=== PATIENT | male | born 1955 | race Caucasian/White ===

== ENCOUNTER 2019-12-25 16:44 | Emergency (ER) | payer MEDICARE, MEDICAID, SELFPAY ==
[2019-12-25 17:00] VITALS: BP 131/75; PULSE 87; RESP 17; TEMP 37.1; O2SAT 99; BMI 24.5
--- NOTE | 2019-12-25 17:25 | W.ED.SKABFB ---
HPI - Skin/Abscess/Foreign Bdy General: Chief complaint: Skin/Abscess/Foreign Body Stated complaint: abcess on elbow Source: patient Mode of arrival: ambulatory Limitations: no limitations History of Present Illness: HPI narrative: Patient comes in today with complaints of redness and tenderness to the right elbow for one week. Patient has had a history of previous flare in the elbow with incision and drainage. Patient appears well. Patient appears in mild pain. Review of Systems General: Reports: 10 or more systems reviewed and unremarkable except in HPI and below Skin/Breast: Reports: redness and skin tenderness PFSH ED PFSH: Family History (Updated 12/25/19 @ 13:30 by Zahraa Lugo RN) Denies family history of Anesthesia complication Bleeding disorder Social History (Updated 12/25/19 @ 13:30 by Zahraa Lugo RN) Smoking and tobacco status: current every day smoker Second hand smoke exposure: No Alcohol intake: never Adopted: No Caregiver/support person: Yes Lives independently: Yes Household members: none Housing: House Marital status: Single service: No Current occupational status: disabled Current occupational exposures/hazards: No Pets and animals: No History of recent travel: No Sexually active: No Current gender identity: Male Luna/Holiness: [employer] [place] Special luna needs: No Agree to transfusion: No Financial difficulty paying for basics: Decline to Answer Physical Exam Const: COMMON NORMALS: no apparent distress and oriented x3 GENERAL APPEARANCE: cooperative HENMT: COMMON NORMALS: normocephalic, external ears normal, EAC's normal, TM's normal bilaterally and external nose normal HEAD & SCALP: normal to inspection and normocephalic FACE & SINUS: normal facial exam NOSE: external nose normal GENERAL EAR: hearing not grossly impaired EXTERNAL EAR: Yes external ears normal EXTERNAL AUDITORY CANAL: EAC's normal TYMPANIC MEMBRANE: TM's normal bilaterally MOUTH: oral and palatal mucosa normal THROAT: posterior oropharynx normal Eye: COMMON NORMALS: PERRL and EOMs intact bilaterally PUPIL: Yes PERRL Neck/C-Spine: COMMON NORMALS: full ROM and no lymphadenopathy Lymph: LYMPHATIC: no lymphedema noted Chest: COMMONS NORMALS: inspection of chest normal and palpation of chest normal Resp: COMMON NORMALS: normal respiratory effort and clear to auscultation bilaterally AUSCULTATION: clear to auscultation bilaterally Cardio: COMMON NORMALS: regular rate and regular rhythm RATE: regular rate RHYTHM: regular rhythm GI: COMMON NORMALS: normal to inspection, nondistended, normoactive bowel sounds and non-tender : COMMON NORMALS: Yes no CVA tenderness BLADDER/KIDNEY EXAM: Yes no CVA tenderness Back/Pelvis: COMMON NORMALS: no CVA tenderness and thoracic and lumbar spine normal to inspection Extremity: GENERAL: Yes edema RIGHT UPPER EXTREMITY: Yes elbow joint (redness and swelling to right elbow, olecranon swelling) Neuro: COMMON NORMALS: oriented x3, moves all extremities and no focal motor deficits Psych: COMMON NORMALS: mental status grossly normal and cooperative Skin: COMMON NORMALS: no rashes or lesions noted GENERAL SKIN EXAM: no rashes or lesions noted Course Vital Signs: Vital signs: Vital Signs Temperature 98.8 F 12/25/19 17:00 Pulse Rate 87 12/25/19 17:00 Respiratory Rate 17 12/25/19 17:00 Blood Pressure 131/75 12/25/19 17:00 Pulse Oximetry 99 12/25/19 17:00 MDM - Skin/Abscess/Foreign Bdy MDM Narrative: Medical decision making narrative: Patient comes in today with complaints of redness and tenderness to the right elbow. On exam we note swelling of the olecranon bursa with significant redness surrounding it. Pulses are equal distal. Prompt capillary refill is noted distally. Differential diagnosis includes cellulitis, abscess, olecranon bursitis. Reviewed exam with patient with recommendations for treatment for olecranon bursitis. Was able to draw off some turbid fluid from elbow approximately 15 mL's. Patient tolerated well. Patient be started on clindamycin he was given 600 mg IM in the emergency room. Patient be started on p.o. meds 304 times a day for 10 days. Patient was also given some hydrocodone for breakthrough pain. Patient was recommended to return to the ER for high fever or worsening pain and swelling. Patient reports understanding. Patient may need further treatment with IV drugs and admission if continued or worsening symptoms. Discharge Plan Discharge Patient Disposition: Home, Self-Care Clinical Impression: Bursitis Qualifiers: Bursitis location: elbow Elbow bursitis location: olecranon bursitis Laterality: right Qualified Code(s): M70.21 - Olecranon bursitis, right elbow Condition: Stable Prescriptions: New clindamycin HCl 300 mg capsule 300 mg PO Q6H 10 Days Qty: 40 RF: 0 hydrocodone-acetaminophen 5-325 mg tablet 1 tab PO Q6H PRN (Reason: pain) Qty: 10 RF: 0 No Action acetaminophen [Tylenol Extra Strength] 500 mg tablet 500 mg PO Q6H PRNRF: 0 Referrals: Juancho Sparks NP [Primary Care Provider] - Discharge Diet: Usual diet Discharge Activity: Increase activity as tolerated Patient Instructions: Bursitis - Elbow Activity Restrictions/Additional Instructions: Healthy diet and exercise Return to ER for high fever or worsening pain Drink plenty of water with medications Acetaminophen and ibuprofen as needed for pain Follow-up with primary care in three days Discharge Date/Time: 12/25/19 18:08 Coding Level of Care 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
[2019-12-25 18:11] VITALS: BP 137/77; PULSE 84; RESP 18; O2SAT 99
== END 2019-12-25 18:08 | disposition home or self-care (01) ==
PROVIDERS: Emergency Provider Nurse Practitioner Family; PCP Nurse Practitioner Family
DX: M70.21 Olecranon bursitis, right elbow (principal); F17.200 Nicotine dependence, unspecified, uncomplicated
CPT/HCPCS: 20605; 87070; 87077; 87186; 87205; 96365; 96366; 96367; 96372; 99282; 99283; J3490

== ENCOUNTER 2019-12-30 10:16 | Emergency (ER) | payer MEDICARE, MEDICAID, SELFPAY ==
[2019-12-30 10:35] VITALS: BP 141/70; PULSE 73; RESP 18; TEMP 36.5; O2SAT 99; BMI 23.8
--- NOTE | 2019-12-30 12:22 | PC.NURSE ---
Patient has a large abscess noted on right elbow. Was seen here and treated with clindamycin. Patient reports woke up this am and the area had drained all over his bed and it was not getting better. Tavo Rose in room with patient at this time. Area with moderate erythema. Re-dressed per Tavo.
--- NOTE | 2019-12-30 12:26 | W.ED.EXTPRO ---
HPI - Extremity Problem General: Chief complaint: Extremity Problem,Nontraumatic Stated complaint: Bursitis Time Seen by Provider: 12/30/19 12:18 Source: patient Mode of arrival: ambulatory Limitations: no limitations Review of Systems General: Reports: 10 or more systems reviewed and unremarkable except in HPI and below Skin/Breast: Reports: changes in skin color PFSH ED PFSH: Social History Smoking and tobacco status: current every day smoker Second hand smoke exposure: No Alcohol intake: never Adopted: No Caregiver/support person: Yes Lives independently: Yes Household members: none Housing: House Marital status: Single service: No Current occupational status: disabled Current occupational exposures/hazards: No Pets and animals: No History of recent travel: No Sexually active: No Current gender identity: Male Luna/Zoroastrian: [employer] [place] Special luna needs: No Agree to transfusion: No Financial difficulty paying for basics: Decline to Answer Physical Exam Const: COMMON NORMALS: no apparent distress and oriented x3 GENERAL APPEARANCE: cooperative HENMT: COMMON NORMALS: normocephalic, external ears normal, EAC's normal, TM's normal bilaterally and external nose normal HEAD & SCALP: normal to inspection and normocephalic FACE & SINUS: normal facial exam NOSE: external nose normal GENERAL EAR: hearing not grossly impaired EXTERNAL EAR: Yes external ears normal EXTERNAL AUDITORY CANAL: EAC's normal TYMPANIC MEMBRANE: TM's normal bilaterally MOUTH: oral and palatal mucosa normal THROAT: posterior oropharynx normal Eye: COMMON NORMALS: PERRL and EOMs intact bilaterally PUPIL: Yes PERRL Neck/C-Spine: COMMON NORMALS: full ROM and no lymphadenopathy Lymph: LYMPHATIC: no lymphedema noted Chest: COMMONS NORMALS: inspection of chest normal and palpation of chest normal Resp: COMMON NORMALS: normal respiratory effort and clear to auscultation bilaterally AUSCULTATION: clear to auscultation bilaterally Cardio: COMMON NORMALS: regular rate and regular rhythm RATE: regular rate RHYTHM: regular rhythm GI: COMMON NORMALS: normal to inspection, nondistended, normoactive bowel sounds and non-tender : COMMON NORMALS: Yes no CVA tenderness BLADDER/KIDNEY EXAM: Yes no CVA tenderness Back/Pelvis: COMMON NORMALS: no CVA tenderness and thoracic and lumbar spine normal to inspection Extremity: NARRATIVE EXTREMITY EXAM: Area of redness is noted to the olecranon bursa. As compared to previous exam one week ago continues to be erythematous but without any surrounding area of redness or swelling. Is approximately 3 cm circular with a central draining lesion. Neuro: COMMON NORMALS: oriented x3, moves all extremities and no focal motor deficits Psych: COMMON NORMALS: mental status grossly normal and cooperative Skin: COMMON NORMALS: no rashes or lesions noted GENERAL SKIN EXAM: no rashes or lesions noted Course Vital Signs: Vital signs: Vital Signs Temperature 98.3 F 12/30/19 12:37 Pulse Rate 88 12/30/19 12:37 Respiratory Rate 18 12/30/19 12:37 Blood Pressure 133/59 12/30/19 12:37 Pulse Oximetry 98 12/30/19 12:37 MDM - Extremity (Nontraumatic) MDM Narrative: Medical decision making narrative: Patient comes in for reevaluation of wound to the right elbow. Patient has an olecranon bursitis that was treated one week ago with aspiration and starting on clindamycin. Culture was collected at that time. Differential diagnosis includes septic arthritis, olecranon bursitis, cellulitis. Reviewed culture results it was resistant to clindamycin, it was staph aureus. Will go ahead and switch medications to Bactrim and Cipro for further treatment. Patient reports understanding of care plan and need for return or follow-up. Discharge Plan Discharge Patient Disposition: Home, Self-Care Clinical Impression: Bursitis Qualifiers: Bursitis location: elbow Elbow bursitis location: olecranon bursitis Laterality: right Qualified Code(s): M70.21 - Olecranon bursitis, right elbow Condition: Stable Prescriptions: New hydrocodone-acetaminophen 5-325 mg tablet 1 tab PO Q6H PRN (Reason: pain) Qty: 10 RF: 0 ciprofloxacin HCl 500 mg tablet 500 mg PO BID Qty: 20 RF: 0 sulfamethoxazole-trimethoprim 800-160 mg tablet 1 tab PO BID 10 Days Qty: 20 RF: 0 No Action acetaminophen [Tylenol Extra Strength] 500 mg tablet 500 mg PO Q6H PRNRF: 0 clindamycin HCl 300 mg capsule 300 mg PO Q6H 10 Days Qty: 40 RF: 0 hydrocodone-acetaminophen 5-325 mg tablet 1 tab PO Q6H PRN (Reason: pain) Qty: 10 RF: 0 Referrals: Juancho Sparks NP [Primary Care Provider] - Discharge Date/Time: 12/30/19 12:39 Coding Level of Care 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
[2019-12-30 12:37] VITALS: BP 133/59; PULSE 88; RESP 18; TEMP 36.8; O2SAT 98
--- NOTE | 2019-12-30 12:37 | PC.NURSE ---
Abdominal pad secured with kerlex.
== END 2019-12-30 12:39 | disposition home or self-care (01) ==
LOC: ER 12:26
PROVIDERS: Emergency Provider Nurse Practitioner Family; PCP Nurse Practitioner Family
DX: M70.21 Olecranon bursitis, right elbow (principal); B95.8 Unspecified staphylococcus as the cause of diseases classified elsewhere; F17.200 Nicotine dependence, unspecified, uncomplicated; Z16.29 Resistance to other single specified antibiotic
CPT/HCPCS: 99281; 99282

== ENCOUNTER 2020-01-21 14:11 | Outpatient (CLI) | payer MEDICARE, MEDICAID, SELFPAY ==
--- NOTE | 2020-01-21 14:19 | XR_ITS ---
WS: [id number] XR chest 2V* [id number] REASON FOR EXAM: PRE OP, SMOKING HISTORY FINDINGS: Lung crews are hyper aerated with flattening's of the hemidiaphragms and increase in the r etrosternal space as well as decreased vascularity. No pneumonia, pleural effusion, pulmonary edema. There is scattered calcified granulomas midportion of both lung crews. XR/XR chest 2V* [id number] IMPRESSION: Obstructive pulmonary disease.
== END 2020-01-21 14:12 | disposition home or self-care (01) ==
LOC: RADWPI 14:16
PROVIDERS: PCP Nurse Practitioner Family; Visit Provider Family Medicine
DX: J44.9 Chronic obstructive pulmonary disease, unspecified (principal); Z01.811 Encounter for preprocedural respiratory examination; Z87.891 Personal history of nicotine dependence
CPT/HCPCS: 71046